=== PATIENT | male | born 1990 | race American Indian/Alaskan Native ===

== ENCOUNTER 2018-04-09 20:26 | Emergency (ER) | payer MEDICAID, OTHER ==
[2018-04-09] MEDS ORDERED: Sodium Chloride 0.9% 1,000 ML IV ONE (20:32)
[2018-04-09 21:04] LABS: CHLORIDE,CL 103 mmol/L (101-111); SODIUM,NA 136 mmol/L (135-145)
[2018-04-09] MEDS ORDERED: Phenytoin 1,000 MG in Sodium Chloride 0.9% 100 ML IV ONE (21:12)
[2018-04-09 22:57] VITALS: BP 87/46
[2018-04-09] MEDS ORDERED: Naloxone 2 MG/2 ML Syringe IVPUSH ONE (23:21)
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
== END 2018-04-09 23:57 | disposition home or self-care (01) ==
LOC: DL.ED 20:26
DX: G40.909 Epilepsy, unspecified, not intractable, without status epilepticus (principal)
CPT/HCPCS: 36415; 70450; 80053; 80185; 80305; 81001; 85025; 96365; 96366; 96368; 99284; G0480; J1165; J7030; J7050

== ENCOUNTER 2021-05-04 23:27 | Emergency (ER) | payer MEDICAID, OTHER ==
[2021-05-04 23:05] VITALS: BP 128/76; PULSE 113
[2021-05-04 23:57] LABS: ANION GAP 11.7 mEq/L (7-13); CHLORIDE,CL 104 mmol/L (98-107); SODIUM,NA 140 mmol/L (136-145)
--- NOTE | 2021-05-05 00:01 | CT ---
PROCEDURE INFORMATION: Exam: CT Head Without Contrast Exam date and time: 05/04/2021 11:53 PM Age: 31 years old Clinical indication: Other: Seizure; Prior surgery; Surgery date: 6+ months; Surgery type: Craniotomy TECHNIQUE: Imaging protocol: Computed tomography of the head without contrast. Radiation optimization: All CT scans at this facility use at least one of these dose optimization techniques: automated exposure control; mA and/or kV adjustment per patient size (includes targeted exams where dose is matched to clinical indication); or iterative reconstruction. COMPARISON: CT Head wo Cont 04/09/2018 9:32 PM FINDINGS: Brain: Normal. No hemorrhage. Unremarkable white matter. No mass effect. Cerebral ventricles: No ventriculomegaly. Paranasal sinuses: Visualized sinuses are unremarkable. No fluid levels. Mastoid air cells: Visualized mastoid air cells are well aerated. Bones/joints: Postoperative changes are present within the right frontal region compatible prior craniotomy. Soft tissues: Unremarkable. IMPRESSION: Stable appearance of the brain with postoperative change from prior right frontal craniotomy. No acute intracranial abnormality identified.
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
[2021-05-05] MEDS ORDERED: Sodium Chloride 0.9% 1,000 ML IV ONE (01:13)
== END 2021-05-05 02:06 | disposition home or self-care (01) ==
LOC: DL.ED 23:27
DX: R56.9 Unspecified convulsions (principal); F19.10 Other psychoactive substance abuse, uncomplicated; Z91.19 Patient's noncompliance with other medical treatment and regimen
CPT/HCPCS: 36415; 70450; 80053; 80185; 80305-QW; 80307; 81001; 85025; 93005; 93010; 99284; 99284-25; J7030

== ENCOUNTER 2021-06-18 12:43 | Emergency (ER) | payer MEDICAID ==
[2021-06-18] MEDS ORDERED: levETIRAcetam in NaCl (iso-os) 1,000 MG in Premix Bag 1 BAG IV ONE ×2 (12:45)
[2021-06-18 13:18] LABS: CHLORIDE,CL 105 mmol/L (98-107); SODIUM,NA 142 mmol/L (136-145)
--- NOTE | 2021-06-18 13:19 | CT ---
EXAMINATION: Head wo Cont SEX: Male AGE: 31 years CLINICAL HISTORY: 31-year-old male with slurred speech/confusion who has history of "brain surgery and seizure". Scan technique: Volume acquisition of data emergency unenhanced CT scan of the head and brain obtained with the patient lying supine on the Siemens multislice scanner [place], [place]. All data archived in the PACS system for storage, reformatting axial/sagittal/coronal planes and study. Comparison CT exam 04 May 2021. Interpretation: 1. Evidence previous surgery (bone flap) right parietal convexity. 2. Symmetric [place]-white matter pattern with underlying mirror-image normal ventricular system. No hydrocephalus. 3. No sign of acute skull fracture, underlying brain contusion or extracerebral epidural/subdural hematoma. 4. No supratentorial or posterior fossa mass lesion. 5. No new signs of ischemic infarct/encephalomalacia or acute intracerebral/intraventricular/subarachnoid bleed. 6. Cerebellum and brainstem unremarkable. 7. Symmetric clear pneumatization of the paranasal and mastoid sinuses. No residual sinusitis. Nasal septum midline. CONCLUSION: No acute new intracranial abnormality.
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
[2021-06-18 14:39] VITALS: BP 121/66; PULSE 81
== END 2021-06-18 14:20 | disposition home or self-care (01) ==
LOC: DL.ED 12:43
DX: G40.909 Epilepsy, unspecified, not intractable, without status epilepticus (principal); S01.512A Laceration without foreign body of oral cavity, initial encounter; Z79.899 Other long term (current) drug therapy; X58.XXXA Exposure to other specified factors, initial encounter
CPT/HCPCS: 36415; 70450; 80053; 85025; 96374; 99283; 99284-25; J1953

== ENCOUNTER 2022-11-12 16:49 | Emergency (ER) | payer MEDICAID ==
[2022-11-12 18:55] LABS: ANION GAP 12.4 mEq/L (7-13)
[2022-11-12] MEDS: Iopamidol 612 MG/ML 100 ML Bottle IVPUSH ONE (19:34)
[2022-11-12 20:02] VITALS: BP 128/90; PULSE 111
[2022-11-12] MEDS: cefTRIAXone 2 GM Vial IVPUSH ONE (20:59)
[2022-11-12] MEDS: Lidocaine 1% 10 ML MDV INJECT ONE (21:08)
[2022-11-12] MEDS: Bacitracin Oint 1 GM U/D Packet TOP ONE (21:16)
[2022-11-12] MEDS: Sulfamethoxazole/Trimethoprim 800-160 MG Tab ONE (21:28)
== END 2022-11-12 21:31 | disposition home or self-care (01) ==
LOC: DL.ED 16:49
DX: L02.411 Cutaneous abscess of right axilla (principal); F19.90 Other psychoactive substance use, unspecified, uncomplicated
CPT/HCPCS: 36415; 73201; 74177; 80053; 83605; 85025; 87040; 96374; 99284; J0696; Q9967

== ENCOUNTER 2022-11-27 13:41 | Emergency (ER) | payer MEDICAID ==
[2022-11-27 13:52] VITALS: BP 131/82; PULSE 156
[2022-11-27] MEDS ORDERED: Sodium Chloride 0.9% 1,000 ML IV ONE ×2 (13:54→14:23)
[2022-11-27] MEDS ORDERED: Sodium Chloride 0.9% 10 ML Syringe FLUSH PRN (13:54)
[2022-11-27] MEDS ORDERED: Albuterol/Ipratropium 3.0-0.5 MG/3 ML Neb Soln NEB ONE (13:54)
[2022-11-27] MEDS ORDERED: Acetaminophen 325 MG Tab PO ONE (13:55)
[2022-11-27] MEDS ORDERED: cefTRIAXone 2 GM Vial IVPUSH ONE (14:31)
[2022-11-27] MEDS ORDERED: Azithromycin 500 MG in Sodium Chloride 0.9% 250 ML IV ONE (14:31)
[2022-11-27] MEDS ORDERED: Lidocaine 1% 20 ML MDV INFILT ONE (14:43)
[2022-11-27] MEDS ORDERED: fentaNYL 100 MCG/2 ML SDV IVPUSH ONE (14:44)
[2022-11-27] MEDS ORDERED: Midazolam 1 MG/ML 2 ML SDV IVPUSH ONE ×2 (14:44→14:45)
[2022-11-27 14:56] LABS: ANION GAP 16.8 mEq/L (7-13); CHLORIDE,CL 94 mmol/L (98-107); SODIUM,NA 136 mmol/L (136-145)
[2022-11-27 14:58] LABS: ESTIMATED GFR 109 mL/min (>=60)
[2022-11-27] MEDS ORDERED: Lidocaine 1% 10 ML MDV ONE (15:02)
[2022-11-27 15:14] LABS: PTT,PARTIAL THROMBOPLSTIN TIME 23.3 SEC (22.0-34.0)
[2022-11-27 15:18] LABS: CORONAVIRUS COVID-19 NAA NEGATIVE (NEGATIVE); RESPIRATORY SYNCYTIAL VIR NAA NEGATIVE (NEGATIVE)
[2022-11-27] MEDS ORDERED: NS with KCl 40mEq 1,000 ML IV SCH (15:30)
[2022-11-27] MEDS ORDERED: Ondansetron 4 MG/2 ML SDV ONE (16:20)
[2022-11-27] MEDS ORDERED: Ondansetron 4 MG/2 ML SDV IVPUSH ONE (16:54)
== END 2022-11-27 16:36 ==
LOC: DL.ED 13:41
DX: A41.9 Sepsis, unspecified organism (principal); R65.20 Severe sepsis without septic shock; J96.01 Acute respiratory failure with hypoxia; J43.0 Unilateral pulmonary emphysema [MacLeod's syndrome]; J93.9 Pneumothorax, unspecified; E87.6 Hypokalemia; F15.10 Other stimulant abuse, uncomplicated; Z20.822 Contact with and (suspected) exposure to COVID-19; Z86.14 Personal history of Methicillin resistant Staphylococcus aureus infection
CPT/HCPCS: 0241U; 32551; 36415; 71045; 80053; 80185; 80307; 82947; 83605; 83880; 84484; 85025; 85379; 85610; 85730; 86140; 87040; 87070; 93005; 96361; 96365; 96366; 96368; 96375; 99285; A9270; J0456; J0696; J2250; J2405; J3010; J3370; J3480; J3490; J7030; J7050; J7620-GY

== ENCOUNTER 2025-02-07 12:41 | Emergency (ER) | payer MEDICAID ==
[2025-02-07 13:04] LABS: HEMATOCRIT 43.6 % (40.0-54.0); HEMOGLOBIN 15.1 g/dL (14.0-18.0); MEAN CORPUSCULAR HEMOGLOBIN 27.8 pg (27.0-34.0); MEAN CORPUSCULAR HGB CONC 34.6 g/dL (33.0-35.0); MEAN CORPUSCULAR VOLUME 80.3 fL (80-100); PLATELET COUNT,PLT 143 10^3/uL (150-450); RED BLOOD CELL COUNT 5.43 10^6/uL (4.6-6.2); WHITE BLOOD CELL COUNT,WBC 19.6 10^3/uL (5.0-10.0)
[2025-02-07 13:09] LABS: BASOPHILS PERCENT AUTO 0.1 % (0.0-1.0); EOSINOPHILS PERCENT AUTO 0.1 % (1.0-3.0); LYMPHOCYTES PERCENT AUTO 5.6 % (20.5-50.1); MONOCYTES PERCENT AUTO 9.8 % (2-8); NEUTROPHILS PERCENT AUTO 84.4 % (42.2-75.2)
[2025-02-07 13:17] LABS: BLOOD UREA NITROGEN,BUN 8 mg/dL (7-18); CALCIUM 9.2 mg/dL (8.5-10.1); CARBON DIOXIDE,CO2 25 mmol/L (21-32); CHLORIDE,CL 91 mmol/L (98-107); CREATININE 0.79 mg/dL (0.70-1.30); GLUCOSE RANDOM 137 mg/dL (70-99); SODIUM,NA 129 mmol/L (136-145)
[2025-02-07 13:18] LABS: ESTIMATED GFR 117 mL/min (>=60)
[2025-02-07 13:32] LABS: BAND PERCENT MAN 5 %; LYMPHOCYTES PERCENT MAN 6 % (20-50); MONOCYTES PERCENT MAN 6 % (2-8); SEG NEUTROPHILS PERCENT MAN 83 % (42-75)
[2025-02-07] MEDS: Doxycycline Monohydrate 100 MG Cap PO ONE (13:55)
[2025-02-07] MEDS: Lidocaine 1% 30 ML SDV INJECT ONE (13:56)
[2025-02-07 14:06] VITALS: BP 124/80; PULSE 100
== END 2025-02-07 14:02 | disposition home or self-care (01) ==
LOC: DL.ED 12:41
DX: L02.414 Cutaneous abscess of left upper limb (principal); F19.10 Other psychoactive substance abuse, uncomplicated; F17.210 Nicotine dependence, cigarettes, uncomplicated; Z79.899 Other long term (current) drug therapy
CPT/HCPCS: 10060; 36415; 80048; 85025; 87040; 87070; 87077; 87186; 99284; 99284-25; A9270-GY; J3490

== ENCOUNTER 2025-02-13 16:20 | Emergency (ER) | payer MEDICAID ==
[2025-02-13] MEDS ORDERED: Sodium Chloride 0.9% 10 ML Syringe FLUSH PRN (16:37)
[2025-02-13] MEDS: Acetaminophen 325 MG Tab PO ONE (16:58)
[2025-02-13] MEDS: Lactated Ringers 1,000 ML IV SCH ×2 (16:59→17:19)
[2025-02-13 17:05] LABS: HEMATOCRIT 41.1 % (40.0-54.0); HEMOGLOBIN 13.8 g/dL (14.0-18.0); MEAN CORPUSCULAR HEMOGLOBIN 27.7 pg (27.0-34.0); MEAN CORPUSCULAR HGB CONC 33.6 g/dL (33.0-35.0); MEAN CORPUSCULAR VOLUME 82.5 fL (80-100); PLATELET COUNT,PLT 403 10^3/uL (150-450); RED BLOOD CELL COUNT 4.98 10^6/uL (4.6-6.2); WHITE BLOOD CELL COUNT,WBC 23.7 10^3/uL (5.0-10.0)
[2025-02-13 17:10] LABS: BASOPHILS PERCENT AUTO 0.2 % (0.0-1.0); EOSINOPHILS PERCENT AUTO 0.2 % (1.0-3.0); LYMPHOCYTES PERCENT AUTO 3.7 % (20.5-50.1); MONOCYTES PERCENT AUTO 5.1 % (2-8); NEUTROPHILS PERCENT AUTO 90.8 % (42.2-75.2)
[2025-02-13 17:26] LABS: ALANINE AMINOTRANSFERASE,ALT 71 U/L (16-63); ALBUMIN 2.4 g/dL (3.4-5.0); ALKALINE PHOSPHATASE 71 U/L (46-116); ANION GAP 14.7 mEq/L (7-13); ASPARTATE AMNIOTRANSFERASE,AST 85 U/L (15-37); BILIRUBIN TOTAL 0.6 mg/dL (0.2-1.0); BLOOD UREA NITROGEN,BUN 8 mg/dL (7-18); BUN/CREATININE RATIO 8.8 (No establ ref range); CALCIUM 8.4 mg/dL (8.5-10.1); CARBON DIOXIDE,CO2 25 mmol/L (21-32); CHLORIDE,CL 92 mmol/L (98-107); CREATININE 0.91 mg/dL (0.70-1.30); EST CRCL DRUG DOSING (CG) 97.69 mL/min; GLUCOSE RANDOM 159 mg/dL (70-99); MAGNESIUM 2.2 mg/dL (1.8-2.4); POTASSIUM,K 3.7 mmol/L (3.5-5.1); PROTEIN TOTAL,TP 8.3 g/dL (6.4-8.2); SODIUM,NA 128 mmol/L (136-145)
[2025-02-13 17:30] LABS: LYMPHOCYTES PERCENT MAN 6 % (20-50); MONOCYTES PERCENT MAN 6 % (2-8); SEG NEUTROPHILS PERCENT MAN 88 % (42-75)
[2025-02-13 17:33] LABS: A/G RATIO 0.41; ESTIMATED GFR 111 mL/min (>=60); ETHANOL BLOOD MEDICAL < 3 mg/dL (0)
[2025-02-13] MEDS: Iopamidol 755 Mg/ML 100 ML Bottle IVPUSH ONE (17:38)
[2025-02-13] MEDS: Sodium Chloride 0.9% 1,000 ML IV ONE (17:46)
[2025-02-13] MEDS: Piperacillin/Tazobactam 4.5 GM in Sodium Chloride 0.9% 100 ML IV ONE (17:48)
[2025-02-13 18:49] LABS: BENZODIAZEPINE,URINE NEGATIVE (NEGATIVE); MDMA (ECSTASY), URINE NEGATIVE (NEGATIVE); METHADONE,URINE NEGATIVE (NEGATIVE); METHAMPHETAMINES,URINE NEGATIVE (NEGATIVE); OPIATES,URINE NEGATIVE (NEGATIVE); TCA,URINE NEGATIVE (NEGATIVE)
[2025-02-13 18:50] LABS: AMPHETAMINES,URINE NEGATIVE (NEGATIVE); BARBITURATES,URINE NEGATIVE (NEGATIVE); OXYCODONE,URINE NEGATIVE (NEGATIVE); PHENCYCLIDINE,URINE NEGATIVE (NEGATIVE)
[2025-02-13] MEDS: VANCOmycin 1 GM in Sodium Chloride 0.9% 250 ML IV ONE (22:08)
[2025-02-13] MEDS: Acetaminophen 500 MG Tab PO ONE (22:09)
[2025-02-13 22:11] VITALS: BP 113/90
[2025-02-13 22:32] VITALS: PULSE 144
[2025-02-16 16:42] LABS: QNTIFERON MITOGEN MIN NIL 5.53 IU/mL; QNTIFERON NIL 0.25 IU/mL; QNTIFERON TB GOLD PLUS Negative (Negative)
== END 2025-02-13 22:30 ==
LOC: DL.ED 16:20
DX: J98.4 Other disorders of lung (principal); L02.414 Cutaneous abscess of left upper limb; R01.1 Cardiac murmur, unspecified; F19.10 Other psychoactive substance abuse, uncomplicated; Z79.899 Other long term (current) drug therapy
CPT/HCPCS: 36415; 71046; 71275; 80053; 80305; 80307; 83735; 85025; 85379; 86480; 87040; 87077; 87186; 87428; 93010; 96361; 96365; 96367; 99285; A9270; J2543; J7030; J7050; J7120; Q9967

== ENCOUNTER 2025-06-20 02:35 | Emergency (ER) | payer MEDICAID ==
[2025-06-20] MEDS: Ketorolac 30 MG/ML SDV IM ONE (03:18)
[2025-06-20 03:36] VITALS: BP 122/82; PULSE 72
== END 2025-06-20 03:23 | disposition home or self-care (01) ==
LOC: DL.ED 02:35
DX: S29.011A Strain of muscle and tendon of front wall of thorax, initial encounter (principal); Z79.899 Other long term (current) drug therapy; W18.39XA Other fall on same level, initial encounter; Y93.89 Activity, other specified
CPT/HCPCS: 71045; 96372; 99283; 99285; J1885

== ENCOUNTER 2025-06-28 14:58 | Emergency (ER) | payer MEDICAID ==
[2025-06-28 15:27] LABS: BASOPHILS PERCENT AUTO 0.4 % (0.0-1.0); EOSINOPHILS PERCENT AUTO 1.9 % (1.0-3.0); LYMPHOCYTES PERCENT AUTO 11.4 % (20.5-50.1); MONOCYTES PERCENT AUTO 10.1 % (2-8); NEUTROPHILS PERCENT AUTO 76.2 % (42.2-75.2); PLATELET COUNT,PLT 215 10^3/uL (150-450); RED BLOOD CELL COUNT 4.84 10^6/uL (4.6-6.2); WHITE BLOOD CELL COUNT,WBC 9.6 10^3/uL (5.0-10.0)
[2025-06-28] MEDS: Ondansetron 4 MG/2 ML SDV IVPUSH ONE (15:29)
[2025-06-28 15:49] LABS: ALANINE AMINOTRANSFERASE,ALT 22 U/L (16-63); ASPARTATE AMNIOTRANSFERASE,AST 14 U/L (15-37); BILIRUBIN TOTAL 0.2 mg/dL (0.2-1.0); BLOOD UREA NITROGEN,BUN 9 mg/dL (7-18); CARBON DIOXIDE,CO2 27 mmol/L (21-32); CHLORIDE,CL 101 mmol/L (98-107); CREATININE 0.75 mg/dL (0.70-1.30); GLUCOSE RANDOM 136 mg/dL (70-99); INR 0.9 (0.9-1.2); POTASSIUM,K 3.2 mmol/L (3.5-5.1); PROTEIN TOTAL,TP 7.0 g/dL (6.4-8.2); PTT,PARTIAL THROMBOPLSTIN TIME 26.7 SEC (22.0-34.0); SODIUM,NA 136 mmol/L (136-145)
[2025-06-28 15:50] LABS: A/G RATIO 0.84; ESTIMATED GFR 119 mL/min (>=60)
[2025-06-28] MEDS: Iopamidol 612 MG/ML 100 ML Bottle IVPUSH ONE (16:36)
[2025-06-28 19:13] VITALS: BP 126/89; PULSE 67
== END 2025-06-28 19:04 | disposition home or self-care (01) ==
LOC: DL.ED 14:58
DX: R10.11 Right upper quadrant pain (principal); Z79.899 Other long term (current) drug therapy
CPT/HCPCS: 36415; 74177; 80053; 83690; 84484; 85025; 85610; 85730; 96361; 96374; 96375; 99283; 99284; J1171; J2405; J7030; Q9967

== ENCOUNTER 2025-07-07 15:57 | Emergency (ER) | payer MEDICAID ==
[2025-07-07] MEDS ORDERED: Sodium Chloride 0.9% 10 ML Syringe FLUSH PRN (16:05)
[2025-07-07 16:43] LABS: PLATELET COUNT,PLT 79 10^3/uL (150-450); RED BLOOD CELL COUNT 4.27 10^6/uL (4.6-6.2); WHITE BLOOD CELL COUNT,WBC 27.9 10^3/uL (5.0-10.0)
[2025-07-07 16:44] LABS: BASOPHILS PERCENT AUTO 0.1 % (0.0-1.0); EOSINOPHILS PERCENT AUTO 0.1 % (1.0-3.0); LYMPHOCYTES PERCENT AUTO 2.4 % (20.5-50.1); MONOCYTES PERCENT AUTO 6.6 % (2-8); NEUTROPHILS PERCENT AUTO 90.8 % (42.2-75.2)
[2025-07-07 17:11] LABS: ALANINE AMINOTRANSFERASE,ALT 21 U/L (16-63); ASPARTATE AMNIOTRANSFERASE,AST 33 U/L (15-37); BILIRUBIN TOTAL 0.7 mg/dL (0.2-1.0); BLOOD UREA NITROGEN,BUN 22 mg/dL (7-18); CARBON DIOXIDE,CO2 21 mmol/L (21-32); CHLORIDE,CL 96 mmol/L (98-107); CREATININE 1.90 mg/dL (0.70-1.30); EST CRCL DRUG DOSING (CG) 48.04 mL/min; GLUCOSE RANDOM 147 mg/dL (70-99); PROTEIN TOTAL,TP 6.7 g/dL (6.4-8.2)
[2025-07-07 17:13] LABS: B-TYPE NATRIURETIC PEPTIDE,BNP 77 pg/ml (0-100)
[2025-07-07 17:18] LABS: POTASSIUM,K 3.4 mmol/L (3.5-5.1); SODIUM,NA 129 mmol/L (136-145)
[2025-07-07 17:20] LABS: A/G RATIO 0.63; ESTIMATED GFR 46 mL/min (>=60); ETHANOL BLOOD MEDICAL < 3 mg/dL (0)
[2025-07-07 17:28] LABS: LACTIC ACID 0.8 mmol/L (0.4-2.0)
[2025-07-07 17:34] LABS: AMPHETAMINES,URINE NEGATIVE (NEGATIVE); BARBITURATES,URINE NEGATIVE (NEGATIVE); MDMA (ECSTASY), URINE NEGATIVE (NEGATIVE); METHAMPHETAMINES,URINE NEGATIVE (NEGATIVE); OPIATES,URINE NEGATIVE (NEGATIVE); OXYCODONE,URINE NEGATIVE (NEGATIVE); PHENCYCLIDINE,URINE NEGATIVE (NEGATIVE); TCA,URINE NEGATIVE (NEGATIVE)
[2025-07-07 17:45] LABS: INR 1.0 (0.9-1.2); PTT,PARTIAL THROMBOPLSTIN TIME 28.3 SEC (22.0-34.0)
[2025-07-07 18:06] LABS: BAND PERCENT MAN 6 %; LYMPHOCYTES PERCENT MAN 3 % (20-50); MONOCYTES PERCENT MAN 4 % (2-8); PLATELET COUNT ESTIMATE DECREASED; SEG NEUTROPHILS PERCENT MAN 87 % (42-75)
[2025-07-07 18:16] VITALS: BP 96/67; PULSE 95
== END 2025-07-07 18:54 ==
LOC: DL.ED 15:57
DX: J18.9 Pneumonia, unspecified organism (principal); B95.3 Streptococcus pneumoniae as the cause of diseases classified elsewhere; Z79.899 Other long term (current) drug therapy; Z86.79 Personal history of other diseases of the circulatory system
CPT/HCPCS: 36415; 71045; 80053; 80305; 80307; 83605; 83735; 83880; 84145; 84484; 85025; 85610; 85730; 86140; 87040; 87077; 87186; 93005; 96361; 96365; 96367; 99285; J2543; J3374; J7030; J7050; 93010; 99284